=== PATIENT | female | born 1950 | race Caucasian/White ===

== ENCOUNTER 2020-04-13 12:26 | Emergency (ER) | payer OTHER ==
[~2020-04-13] VITALS: Ht 152.4 cm; Wt 88.0 kg
[~2020-04-13 12:26] MED LIST: LISI30TA6 PO; OMEP20TC10 PO
[2020-04-13 12:36] VITALS: BP 145/87
--- NOTE | 2020-04-13 12:41 | NUR ---
69 Y/F PRESENTS TO ED FOR WORSENING L SHOULDER PAIN X 1 DAY. PT HAS BEEN DIAGNOSED WITH "RIGID BONES/MUSCLES" AND HAS HAD CHRONIC SHOULDER PAIN. PT REPORTS RECEIVING STEROID INJECTION IN FEBRUARY. UPON AWAKENING THIS AM, REPORTS WORSE PAIN. PT TOOK TYLENOL FOR 10/10 PAIN, C NO IMPROVEMENT. LIMITED ROM ON L SHOULDER. DENIES INJURY PMH- HTN, THYROID, CHOLESTEROL NKDA RX- LEVOTHYROZINE, LISINOPRIN
--- NOTE | 2020-04-13 12:41 | NUR ---
Patient ambulated to bed 1. RN evaluating the patient at bedside.
--- NOTE | 2020-04-13 12:50 | NUR ---
Dr. Barragan is evaluating the patient at bedside.
[2020-04-13] MEDS ORDERED: HYDROcodone/APAP 5/325 MG 1 TAB TAB PO ONE (13:15)
[2020-04-13] MEDS ORDERED: ONDANSETRON 4 MG ODT PO ONE (13:15)
[2020-04-13 13:54] VITALS: BP 139/88
--- NOTE | 2020-04-13 13:54 | NUR ---
Patient discharged with v/s stable. Written and verbal after care instructions given and explained. Patient alert, oriented and verbalized understanding of instructions. Ambulatory with steady gait. All questions addressed prior to discharge. ID band removed. Patient advised to follow up with PMD. Rx of Zofran 4mg and [place] 5mg-325mg given. Patient educated on indication of medication including possible reaction and side effects. Opportunity to ask questions provided and answered.
== END 2020-04-13 13:54 | disposition home or self-care (01) ==
LOC: MED 12:26
DX: G89.29 Other chronic pain (principal); M25.512 Pain in left shoulder; I10 Essential (primary) hypertension; Z79.899 Other long term (current) drug therapy
CPT/HCPCS: 99283; Q0162